=== PATIENT | female | born 2000 | race African-American/Black ===

== ENCOUNTER 2021-11-04 22:10 | Emergency (ER) | payer SELFPAY ==
[~2021-11-04] VITALS: Ht 162.6 cm; Wt 60.0 kg
[2021-11-04 22:10] VITALS: BP 102/69
[2021-11-04] MEDS ORDERED: oxyCODONE/APAP 5/325 1 TAB TABLET PO ONE (22:30)
--- NOTE | 2021-11-04 22:48 | PHYS DOC ---
General Adult EDM: Chief Complaint: FOOT INJURY PAIN HPI: HPI: ".. I tripped coming down the stairs..and fell.. twisted my Rt. foot and ankle bad..." Patient is a 20 year old female who presents with above hx and injury to Rt. foot and ankle. No upper leg tenderness. No other injury during the fall. P atient denies . Recently moved from [place] has no established primary care here. Patient does have swelling of right foot and ankle. Does have positive foot squeeze. Distal neurovascular is equal to left foot. Patient denies other injury at this time. Patient adamant she cannot be because she is " angela." Review of Systems: Review of Systems: Constitutional: Denies fever or chills Eyes: Denies change in visual acuity HENT: Denies nasal congestion or sore throat Respiratory: Denies cough or shortness of breath Cardiovascular: Denies chest pain or edema GI: Denies abdominal pain, nausea, vomiting, bloody stools or diarrhea : Denies dysuria Musculoskeletal: Right foot and ankle Integument: Denies rash Neurologic: Denies headache, focal weakness or sensory changes Endocrine: Denies polyuria or polydipsia Lymphatic: Denies swollen glands Psychiatric: Denies depression or anxiety Family History: Family History: Noncontributory Current Medications: Current Meds: Current Medications Medications (Trade) Dose Ordered Sig/Amber Start Time Stop Time Status Last Admin Dose Admin Oxycodone/ Acetaminophen (Percocet 5/325) 2 tab 1X ONCE 11/04/21 22:30 11/04/21 22:34 DC Allergies: Allergies: Allergies Coded Allergies Type Severity Reaction Last Updated Verified No Known Drug Allergies 11/04/21 No Physical Exam: PE: Constitutional: Moderte acute distress, non-toxic appearance. [] HENT: Normocephalic, atraumatic, bilateral external ears normal, oropharynx moist, no oral exudates, nose normal. [] Eyes: PERRLA, EOMI, conjunctiva normal, no discharge. [] Neck: Normal range of motion, no tenderness, supple, no stridor. [] Cardiovascular:Heart rate regular rhythm, no murmur [] Lungs & Thorax: Bilateral breath sounds equal at apex on auscultation []Few lower wheezes. Abdomen: Bowel sounds normal, soft, no tenderness, no masses, no pulsatile masses. [] Skin: Warm, dry, no erythema, no rash. [] Back: No tenderness, no CVA tenderness. [] Extremities: No tenderness, no cyanosis, no clubbing, ROM intact, no edema. [] Neurologic: Alert and oriented X 3, normal motor function, normal sensory function, no focal deficits noted. [] Psychologic: Affect anxious, judgement normal, mood normal. [] EKG: EKG: [] Radiology/Procedures: Radiology/Procedures: [][address] [address] IMAGING REPORT Signed PATIENT: SIVAN PONCEOUNT: [id number] : 2000 LOCATION: ER AGE: 20 SEX: F EXAM STATUS: REG ER ORD. PHYSICIAN: SABINO PALACIOS MD REASON: fall on stairs PROCEDURE: FOOT RIGHT 3V XR EXAM OF ANKLE_RIGHT 3VIEWS, XR FOOT_RIGHT 3 VIEWS History: Fall on stairs. Pain. Comparison: None. Findings: Osseous mineralization is normal. No acute fracture or dislocaton. The ankle mortise and talar dome are intact. No significant degenerative changes. Soft tissues are unremarkable. Impression: 1. No acute osseous abnormality of the right foot and ankle. Electronically signed by: Wojciech Swenson MD (11/04/2021 11:20 PM) [facility] DICTATED AND SIGNED BY: WOJCIECH SWENSON MD DATE: 11/04/21 0910 CC: SABINO PALACIOS MD; PCP,NO ~ Heart Score: C/O Chest Pain: N/A Risk Factors: Risk Factors: DM, Current or recent (<one month) smoker, HTN, HLP, family history of CAD, obesity. Risk Scores: Score 0 - 3: 2.5% MACE over next 6 weeks - Discharge Home Score 4 - 6: 20.3% MACE over next 6 weeks - Admit for Clinical Observation Score 7 - 10: 72.7% MACE over next 6 weeks - Early Invasive Strategies Course & Med Decision Making: Course & Med Decision Making Pertinent Labs and Imaging studies reviewed. (See chart for details) Splint , Ice , elevation, wrap, crutches and take tylenool and ibuprofen for pain. Follow up with primary. Re-xray in 2 weeks if no significant improvement. Distal neuro vascular in tact post splint. Impression: 1.Rt. Foot and Ankle Sprain [] Dragon Disclaimer: Dragon Disclaimer: This electronic medical record was generated, in whole or in part, using a voice recognition dictation system. Departure Departure: Referrals: PCP,NO (PCP) Trini Disclaimer This chart was dictated in whole or in part using Voice Recognition software in a busy, high-work load, and often noisy Emergency Department environment. It may contain unintended and wholly unrecognized errors or omissions. Dragon Disclaimer This chart was dictated in whole or in part using Voice Recognition software in a busy, high-work load, and often noisy Emergency Department environment. It may contain unintended and wholly unrecognized errors or omissions. SABINO PALACIOS MD Nov 04, 2021 22:48
--- NOTE | 2021-11-04 23:22 | RAD ---
XR EXAM OF ANKLE_RIGHT 3VIEWS, XR FOOT_RIGHT 3 VIEWS History: Fall on stairs. Pain. Comparison: None. Findings: Osseous mineralization is normal. No acute fracture or dislocaton. The ankle mortise and talar dome a re intact. No significant degenerative changes. Soft tissues are unremarkable. Impression: 1. No acute osseous abnormality of the right foot and ankle. Electronically signed by: Wojciech Cameron MD (11/04/2021 11:20 PM) [facility]
--- NOTE | 2021-11-04 23:22 | RAD ---
XR EXAM OF ANKLE_RIGHT 3VIEWS, XR FOOT_RIGHT 3 VIEWS History: Fall on stairs. Pain. Comparison: None. Findings: Osseous mineralization is normal. No acute fracture or dislocaton. The ankle mortise and talar dome a re intact. No significant degenerative changes. Soft tissues are unremarkable. Impression: 1. No acute osseous abnormality of the right foot and ankle. Electronically signed by: Wojciech Cameron MD (11/04/2021 11:20 PM) [facility]
== END 2021-11-05 00:30 | disposition home or self-care (01) ==
LOC: ER 22:10
DX: S93.401A Sprain of unspecified ligament of right ankle, initial encounter (principal); S93.601A Unspecified sprain of right foot, initial encounter; W10.8XXA Fall (on) (from) other stairs and steps, initial encounter; Y93.89 Activity, other specified; Y92.89 Other specified places as the place of occurrence of the external cause; Y99.8 Other external cause status
CPT/HCPCS: 29515; 73610; 73630; 99284